=== PATIENT | female | born 1995 | race Caucasian/White ===

== ENCOUNTER 2019-09-13 10:21 | Emergency (ER) | payer OTHER ==
--- NOTE | 2019-09-13 10:43 | UC ---
Laceration HPI - HPI Summary HPI Summary: 24 y/o female presents to the urgent care c/o Cutting her left middle finger w / a knife this morning while cutting an avocado at work around 1 hr ago today. Pt reports she can move her finger w/o any difficulty. Pain at touch is 6/10. Bleeding stopped w/ pressure. She irrigated wound and applied pressure. She is unsure of last tetanus, but believes it was within 10 years. Pt is accompany by sales representative. Pt denies fever, numbness or tingling sensation over her left hand, SOB, chest pain, abdominal pain, N/V/d. - History Of Current Complaint Stated Complaint: LT MIDDLE FINGER LAC Time Seen by Provider: 09/13/19 10:43 Hx Obtained From: Patient Laceration Location: Finger - left middle finger laceration w/ a knife while cutting an avocado at work Mechanism Of Injury: Sharp Trauma Onset/Duration: Sudden Onset, Lasting Hours - 1 hr ago, Still Present Severity: Moderate Pain Intensity: 6 Pain Scale Used: 0-10 Numeric Aggravating Factors: Other: - touch Related History: Occupational Injury - Allergies/Home Medications Allergies/Adverse Reactions: Allergies Allergy/AdvReac Type Severity Reaction Status Date / Time Penicillins Allergy Hives Verified 09/13/19 10:50 Home Medications: Home Medications Bacitracin OINTMENT* 1 applic TOPICAL BID #1 tube 09/13/19 [Rx] Control Pill 1 tab PO DAILY 09/13/19 [History Confirmed 09/13/19] Ibuprofen TAB* [Motrin TAB* 400 MG] 400 mg PO Q6H PRN 09/13/19 [History Confirmed 09/13/19] PMH/Surg Hx/FS Hx/Imm Hx Previously Healthy: Yes GI/ History: Gastroesophageal Reflux - Family History Known Family History: Positive: Diabetes - Social History Occupation: Employed Part-time, Student Lives: With Family - Immunization History Hx Tetanus, Diphtheria Vaccination: No - unsure when was last Tetanus vaccine Review of Systems All Other Systems Reviewed And Are Negative: Yes Constitutional: Positive: Negative Skin: Positive: Other - laceration of left middle finger w/ a knife while cutting an avocado at work Eyes: Positive: Negative ENT: Positive: Negative Respiratory: Positive: Negative Cardiovascular: Positive: Negative Gastrointestinal: Positive: Negative Genitourinary: Positive: Negative Motor: Positive: Negative Neurovascular: Positive: Negative Musculoskeletal: Positive: Other: - left middle finger s/p laceration Neurological/Mental Status: Positive: Negative Psychological: Positive: Negative Is Patient Immunocompromised?: No Physical Exam - Summary Physical Exam Summary: Vital Signs Reviewed: Yes General: well developed, well nourished female sitting in the examining table w/ o any apparent distress Eye Exam: Normal Eyes: Positive: Conjunctiva Clear - PERRLA, EOMI, fundi grossly normal ENT: Positive: Normal ENT inspection, Hearing grossly normal, Pharynx normal, TMs normal Neck: Positive: Supple, Nontender, No Lymphadenopathy Respiratory: Positive: Chest non-tender, Lungs clear, Normal breath sounds, No respiratory distress Cardiovascular: Positive: RRR, No Murmur, Pulses Normal, Brisk Capillary Refill Abdomen Description: Positive: Nontender, No Organomegaly, Soft. Negative: CVA Tenderness (R), CVA Tenderness (L) Bowel Sounds: Positive: Present Musculoskeletal: Positive: Strength Intact, ROM Intact, No Edema Neurological: Positive: Alert, Muscle Tone Normal Psychological Exam: Normal Skin: Positive: palmar side at the base of LF middle finger about 2.0cm in size , non bleeding, no foreign body observed. mild tenderness to palpation, NO ecchymosis around finger. FROM of LF middle finger and left hand, sensation intact, capillary refill brisk, and pulses WNL. Triage Information Reviewed: Yes Laceration Repair - Laceration Repair 1 Description: Linear - Palmar side of left middle finger w/ a superficial linear laceration Laceration Size After Repair: Length (cm) - 2.0cm x 0.5 cm in size Modified For Repair: No Type Injection: Digital Anesthesia Used: 1.0% Lido - 2ml Cleansing Completed Via Routine Prep: Yes Irrigation With Pressure Irrigation Device: Yes Closure Material: Sutures - 6 Closure Method: Single Layer Suture Of: Skin, SQ, Mucus Membrane Suture Type: Prolene - 5.0 Laceration Course/Dx - Course/Dx Course Of Treatment: 24 y/o female presents to the urgent care c/o Cutting her left middle finger w / a knife this morning while cutting an avocado at work around 1 hr ago today. Pt reports she can move her finger w/o any difficulty. Pain at touch is 6/10. Bleeding stopped w/ pressure. She irrigated wound and applied pressure. She is unsure of last tetanus, but believes it was within 10 years. Pt is accompany by sales representative. Pt denies fever, numbness or tingling sensation over her left hand, SOB, chest pain, abdominal pain, N/V/d. Hx obtained. Pt w/ palmar side at the base of LF middle finger about 2.0cm in size, non bleeding, no foreign body observed. mild tenderness to palpation, No ecchymosis around finger. FROM of LF middle finger and left hand, sensation intact, capillary refill brisk, and pulses WNL on examination. Hx obtained. Medication reviewed LACERATION PROCEDURE NOTE: . Copious irrigation was done with saline by the nurse and the wound explored. There was no FB or deep structure injury noted. FROM of left middle finger and hand, procedure was explained and consent obtained, Timeout performed. The wound was anesthetized with 2 mL of 1 % lido by digital block with good anesthesia obtained. Sterile drape and prep were don. There were 6 sutures with 5.0 Prolene type of suture. The length of the wound after closure was 2.0cm. No debridement done. Pt tolerated the procedure well without adverse effects. Neurovascular intact and FROM of left middle finger and Hand. Tdap ordered and applied by nurse. Pt advised to f/u suture removal in 10-12 days and if any signs of infection develop to immediately return to the urgent care of PCP for further management and treatment. Pt understood and agreed and left the clinic ambulating A&Ox3. - Differential Dx - Laceration/Wound Differental Diagnoses: Abrasion, Laceration, Puncture Wound, Tendon Laceration - Diagnosis Provider Diagnosis: Laceration of left middle finger Discharge ED - Sign-Out/Discharge Documenting (check all that apply): Patient Departure - D/c home All imaging exams completed and their final reports reviewed: No Studies - Discharge Plan Condition: Stable Disposition: HOME Prescriptions: Bacitracin OINTMENT* 1 applic TOPICAL BID #1 tube Patient Education Materials: Care For Your Stitches (ED), Laceration (ED) Referrals: [facility] [Outside] - 1 Week Additional Instructions: 1-Please apply topical Bacitracin antibiotic over the wound. Keep wound clean and dry 2- F/u suture removal in 10-12 days w/ your PCP or here at the urgent care. 3-Take Ibuprofen or Tylenol PO q6-8hrs prn for pain or swelling. 4- If you develop fever or redness around your finger please return to the Urgent care or f/u w/ your PCP for further management. - Billing Disposition and Condition Condition: STABLE Disposition: Home
[2019-09-13 10:50] VITALS: BP 106/69
[2019-09-13] MEDS ORDERED: Tetan/Diph/Pertus SYR(Tdap)* 0.5 ML SYR(BOOSTRIX) use SYR contains LATEX IM ONE (10:58)
[2019-09-13] MEDS ORDERED: Lidocaine 1% MPF ** 5 ML VIAL INJ ONE (11:19)
== END 2019-09-13 12:49 | disposition home or self-care (01) ==
LOC: UCCORT 10:21
DX: S61.213A Laceration without foreign body of left middle finger without damage to nail, initial encounter (principal); W26.0XXA Contact with knife, initial encounter; Y93.G1 Activity, food preparation and clean up; Y92.9 Unspecified place or not applicable; Y99.0 Civilian activity done for income or pay; Z23 Encounter for immunization; Z88.0 Allergy status to penicillin
CPT/HCPCS: 12001; 64450; 90471; 90715; 99202; G0463

== ENCOUNTER 2019-09-26 08:14 | Emergency (ER) | payer OTHER ==
[2019-09-26 08:49] VITALS: BP 106/54
--- NOTE | 2019-09-26 09:18 | UC ---
HPI Wound/Suture Re-check - HPI Summary HPI Summary: here for suture removal left 3rd finger laceration is healing well, no bleeding, no discharge, no pain cut her left 3rd finger with a butter knife 13 days ago sutures were placed here - History Of Current Complaint Chief Complaint: YAZANkin Stated Complaint: STITCH REMOVAL Time Seen by Provider: 09/26/19 08:59 Hx Obtained From: Patient Hx Last Menstrual Period: 09/12/19 Onset/Duration: Sudden Onset, Lasting Days - 13, Still Present Severity: Moderate Pain Intensity: 0 Procedure Type: suture removal Surgery Date: 09/13/19 - Allergies/Home Medications Allergies/Adverse Reactions: Allergies Allergy/AdvReac Type Severity Reaction Status Date / Time Penicillins Allergy Hives Verified 09/26/19 08:49 Home Medications: Home Medications Bacitracin OINTMENT* 1 applic TOPICAL BID #1 tube 09/13/19 [Rx Confirmed ] Control Pill 1 tab PO DAILY 09/13/19 [History Confirmed 09/26/19] Ibuprofen TAB* [Motrin TAB* 400 MG] 400 mg PO Q6H PRN 09/13/19 [History Confirmed 09/26/19] PMH/Surg Hx/FS Hx/Imm Hx Previously Healthy: Yes - Surgical History Surgical History: None - Family History Known Family History: Positive: Diabetes - Social History Alcohol Use: Occasionally Substance Use Type: None Smoking Status (MU): Never Smoked Tobacco - Immunization History Hx Tetanus, Diphtheria Vaccination: No - unsure when was last Tetanus vaccine Review of Systems All Other Systems Reviewed And Are Negative: Yes Constitutional: Positive: Negative Skin: Positive: Rash Eyes: Positive: Negative ENT: Positive: Nasal Discharge. Negative: Sore Throat, Ear Ache Respiratory: Positive: Cough Is Patient Immunocompromised?: No Physical Exam Triage Information Reviewed: Yes Appearance: Well-Appearing, No Pain Distress, Well-Nourished Vital Signs: Initial Vital Signs Temp 99 F 09/26/19 08:43 Pulse 78 09/26/19 08:43 Resp 14 09/26/19 08:43 BP 106/54 09/26/19 08:43 Pulse Ox 100 09/26/19 08:43 Vital Signs Reviewed: Yes Eye Exam: Normal Eyes: Positive: Conjunctiva Clear ENT: Positive: Pharynx normal, Nasal congestion, Nasal drainage, TMs normal Neck: Positive: Supple, Nontender, No Lymphadenopathy Respiratory: Positive: Chest non-tender, Lungs clear, Normal breath sounds Cardiovascular: Positive: RRR, No Murmur, Pulses Normal Skin: Positive: Rashes - generalized macular rash, Other - 1.5 cm laceartion left 3rd finger healing well , sutures are intact, no discharge, no erythe, sutures were removed Course/Dx - Diagnosis Provider Diagnosis: Visit for suture removal Discharge ED - Sign-Out/Discharge Documenting (check all that apply): Patient Departure All imaging exams completed and their final reports reviewed: No Studies - Discharge Plan Condition: Stable Disposition: HOME Patient Education Materials: Upper Respiratory Infection (ED), Dermatitis (ED) , Stitches Removal (ED) Referrals: No Primary Care Phys,NOPCP [Primary Care Provider] - 7 Days - Billing Disposition and Condition Condition: STABLE Disposition: Home
== END 2019-09-26 09:51 | disposition home or self-care (01) ==
LOC: UCCORT 08:14
DX: S61.213D Laceration without foreign body of left middle finger without damage to nail, subsequent encounter (principal); Z88.0 Allergy status to penicillin; W26.0XXD Contact with knife, subsequent encounter

== ENCOUNTER 2019-09-26 08:46 | Emergency (ER) | payer BC, OTHER ==
[2019-09-26 08:52] VITALS: BP 106/54
--- NOTE | 2019-09-26 12:31 | UC ---
Skin Complaint HPI - HPI Summary HPI Summary: rash x 4 days located on her trunk / back , arms and legs not itchy , not painful , no change in soap or detergents, has been taking some otc supplements for the past 2 weeks has been having some cold symptoms with nasal congestion , cough , pnd chills , no fever - History of Current Complaint Chief Complaint: UCSkin Time Seen by Provider: 09/26/19 09:34 Stated Complaint: SKIN COMP Hx Obtained From: Patient Hx Last Menstrual Period: 09/12/19 ?: No Onset/Duration: Gradual Onset, Lasting Days - 4, Still Present Timing: Constant Onset Severity: Moderate Current Severity: Moderate Pain Intensity: 0 Pain Scale Used: 0-10 Numeric Location: Diffuse Character: Redness Aggravating Factor(s): Nothing Alleviating Factor(s): Nothing Associated Signs & Symptoms: Positive: Negative - Allergy/Home Medications Allergies/Adverse Reactions: Allergies Allergy/AdvReac Type Severity Reaction Status Date / Time Penicillins Allergy Hives Verified 09/26/19 08:49 Home Medications: Home Medications Bacitracin OINTMENT* 1 applic TOPICAL BID #1 tube 09/13/19 [Rx Confirmed ] Control Pill 1 tab PO DAILY 09/13/19 [History Confirmed 09/26/19] Ibuprofen TAB* [Motrin TAB* 400 MG] 400 mg PO Q6H PRN 09/13/19 [History Confirmed 09/26/19] PMH/Surg Hx/FS Hx/Imm Hx Previously Healthy: Yes - Surgical History Surgical History: None - Family History Known Family History: Positive: Diabetes - Social History Alcohol Use: Occasionally Substance Use Type: None Smoking Status (MU): Never Smoked Tobacco - Immunization History Hx Tetanus, Diphtheria Vaccination: No - unsure when was last Tetanus vaccine Review of Systems All Other Systems Reviewed And Are Negative: Yes Constitutional: Positive: Chills. Negative: Fever Skin: Positive: Rash Eyes: Positive: Negative ENT: Positive: Ear Ache, Nasal Discharge Respiratory: Positive: Cough Is Patient Immunocompromised?: No Physical Exam Triage Information Reviewed: Yes Appearance: Well-Appearing, No Pain Distress, Well-Nourished Vital Signs: Initial Vital Signs Temp 99 F 09/26/19 08:50 Pulse 78 09/26/19 08:50 Resp 14 09/26/19 08:50 BP 106/54 09/26/19 08:50 Pulse Ox 100 09/26/19 08:50 Vital Signs Reviewed: Yes Eye Exam: Normal Eyes: Positive: Conjunctiva Clear ENT: Positive: Normal ENT inspection, Hearing grossly normal, Pharynx normal Neck: Positive: Supple, Nontender, No Lymphadenopathy Respiratory Exam: Normal Respiratory: Positive: Chest non-tender, Lungs clear, Normal breath sounds Cardiovascular: Positive: RRR, No Murmur, Pulses Normal Abdomen Description: Positive: Nontender, No Organomegaly, Soft. Negative: CVA Tenderness (R), CVA Tenderness (L), Distended, Guarding Bowel Sounds: Positive: Present Skin: Positive: Rashes - macular rash diffuse on chest , abd, back, arms and legs Course/Dx - Diagnoses Provider Diagnosis: Dermatitis, URI (upper respiratory infection) Discharge ED - Sign-Out/Discharge Documenting (check all that apply): Patient Departure All imaging exams completed and their final reports reviewed: No Studies - Discharge Plan Condition: Stable Disposition: HOME Patient Education Materials: Upper Respiratory Infection (ED), Dermatitis (ED) Referrals: No Primary Care Phys,NOPCP [Primary Care Provider] - 1 Week - Billing Disposition and Condition Condition: STABLE Disposition: Home
== END 2019-09-26 09:52 | disposition home or self-care (01) ==
LOC: UCCORT 08:46
DX: J06.9 Acute upper respiratory infection, unspecified (principal); L30.9 Dermatitis, unspecified; Z88.0 Allergy status to penicillin
CPT/HCPCS: 99211; G0463